=== PATIENT | female | born 1990 | race Asian ===

== ENCOUNTER → 2023-04-26 | Outpatient (CLI) | payer MEDICAID, SELFPAY ==
[2023-04-26 16:15] LABS: Absolute Lymphocyte Count 2.07 X10^3/uL (0.83-4.51); Absolute Neutrophil Count 7.2 X10^3/uL (2.0-7.7); Basophil# 0.07 X10^3/uL; Basophil% 0.7 % (0-1); Eosinophil# 0.06 X10^3/uL; Eosinophils% 0.6 % (0-5); Hematocrit 38.2 % (37-47); Hemoglobin 12.6 g/dL (12.0-15.0); Lymphocyte # 2.07 X10^3/ul (0.83-4.51); Lymphocyte % 20.7 % (19-41); Mean Corpuscular Hgb 29.4 pg (27.0-32.0); Mean Platelet Vol. 9.8 fl (6.2-12.0); Monocyte# 0.57 X10^3/uL; Monocyte% 5.7 % (0-10); NRBC Flagged by Analyzer 0 % (0-5); Neutrophil % 71.8 % (47-70); Platelet Count 332 K/mm3 (150-450); RBC Distribution Width SD 42.4 fl (35.1-43.9); Red Blood Count 4.29 M/mm3 (4.2-5.4)
[2023-04-26 17:10] LABS: HIV - WCH Non-Reactive (Nonreactive); Hepatitis B Surface Antigen Non-Reactive (Nonreactive); Hepatitis C Antibody Non-Reactive (Nonreactive); Rubella IgG Reactive (Nonreactive); Syphilis Antibodies Non-reactive
[2023-04-28 08:11] LABS: V-Zoster IgG (Immunity) 1346 index (Immune >165)
[2023-04-29 11:08] LABS: Chlamydia By Nucleic Acid AMP Negative (Negative); Gonococcus By Nucleic Acid AMP Negative (Negative)
[2023-05-02 17:07] LABS: HPV APTIMA, High Risk Positive (Negative)
== END | disposition home or self-care (01) ==
LOC: WOBLAB 15:12
PROVIDERS: Visit Provider Obstetrics & Gynecology
DX: Z34.81 Encounter for supervision of other normal pregnancy, first trimester (principal)
CPT/HCPCS: 36415; 85025; 86703; 86762; 86780; 86787; 86803; 87086; 87340; 87491; 87591; 87624; 88175; G0145

== ENCOUNTER → 2023-05-04 | Outpatient (CLI) | payer MEDICAID, SELFPAY ==
--- NOTE | 2023-05-04 | IMM_PTH ---
PATIENT: MICHAEL SULLIVAN LOC: [facility] U#:[id number] AGE/SX: 32/F ROOM: RE05/04/[address]: Dr. Dutch Ovalle MD : 1990 BED: DIS: 05/04/2023 SPEC #: [id number] RECD: 05/05/23 15:11 STATUS: NARCISO REAnkur #: [id number] VINI: 05/04/23 00:[address]: Dutch Ovalle DEPT: IMMUNOHISTOCHEMISTRY RECD BY: Shanta Rivera Tissues: Uterine cervix, NOS Procedures: p16 (initial) KI-67 (add) PHYSICIAN & INSTITUTION [place] [id number] SPECIMEN INFORMATION: Tissue Source: Cervix at 1, 5, 7 & 11 o'clock Clinical Info: Amenorrhea Specimen Number: [id number] CPT code: 39684 METHODOLOGY: Deparaffinized sections of prefer/formalin-fixed tissue or PAP/DQ stained slides are incubated with monoclonal/polyclonal antibodies/oligonucleotide probes. Localization is made via biotin free immunoperoxidase method. Appropriate controls are performed and reacted as expected. Results on target cell population are indicated in the following table: RESULTS: ANTIBODY / CLONE RESULT P16 (E6H4) positive, block-like Ki-67 (30-9) positive, moderate to high These tests were developed and their performance characteristics determined by [facility]. They may not have been cleared or approved by the [place]. Food and Drug Administration. The FDA has determined that such clearance or approval is not necessary. The above immunohistochemical/dualISH markers are ordered and reviewed by the Pathologist. 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 AM:ahsan 05/08/2023
--- NOTE | 2023-05-04 | CER_PTH ---
PATIENT: MICHAEL SULLIVAN LOC: [facility] U#:[id number] AGE/SX: 32/F ROOM: RE05/04/[address]: Dr. 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 See comment. AM:ahsan 05/05/2023 COMMENT Results from immunohistochemistry ([id number]) for surrogate HPV marker (p16) will be reported separately. Case has been reviewed in consultation with Dr. Downs who concurs with the above diagnosis. IDC:SJ MICROSCOPIC DESCRIPTION Slides are reviewed. GROSS DESCRIPTION Received in fixative is one container labeled with the patient's name and designated cervix at 1, 5, 7 & 11 o'clock. The specimen consists of multiple irregular fragments of light jackman soft tissue that in aggregate measure 1.0 x 1.0 x 0.2 cm. The specimen is totally submitted in one cassette. / SJ:rg 05/04/2023 TC:0 CPT: 23817
== END | disposition home or self-care (01) ==
LOC: LABSPEC 10:42
PROVIDERS: Visit Provider Obstetrics & Gynecology
DX: N91.2 Amenorrhea, unspecified (principal)
CPT/HCPCS: 88305; 88341; 88342